=== PATIENT | male | born 1945 | race Caucasian/White ===

== ENCOUNTER → 2018-10-11 | Outpatient (CLI) | payer MEDICARE, OTHER ==
[~2018-10-11] MED LIST: ASPI81CH PO; ATOR10 PO; ATOR20 PO; Bactrim Ds Tab1 EACH PO; IBUP600 PO; MULTI VITAMIN1 EACH PO; OXYACE5T PO; Percocet 5-3251 EACH PO; RXOXYACE PO; TAMS.4ER PO
[2018-10-19 13:08] LABS: BRUSHITE 1.19 ratio (0.00-3.00); CALCIUM OXALATE 6.46 ratio (0.00-6.00); CALCIUM, URINE 13.4 mg/dL (Not Estab.); CALCIUM, URINE 160.8 mg/24 hr (100.0-300.0); CHLORIDE URINE 128 (110-250); CITRIC ACID (CITRATE) 260 mg/L (Not Estab.); CITRIC ACID(CITRATE) 312 mg/24 hr (320-1240); CREATININE, URINE 115.2 mg/dL (Not Estab.); CREATININE, URINE 1382.4 mg/24 hr (1000.0-2000.0); MAGNESIUM, URINE 8.5 mg/dL (Not Estab.); MONOSODIUM URATE 3.59 ratio (0.00-4.00); OSMOLALITY, URINE 688 (300-900); SODIUM, URINE 118 mmol/L (Not Estab.); SODIUM, URINE 142 (58-337); STRUVITE 0.01 ratio (0.00-1.00); URIC ACID 2.41 ratio (0.00-1.20); URINE VOLUME 1200 mL/24 hr (800-1800); URINE VOLUME (PRESERVATIVE) 1200 mL/24 hr (800-1800)
== END | disposition home or self-care (01) ==
LOC: LAB SHORT 10:53 → LAB 10:53 → LAB FUT 09-16 18:15 → EDSTATUS 09-16 18:15
PROVIDERS: Urology
DX: N20.0 Calculus of kidney (principal)
CPT/HCPCS: 81003; 81050; 82131; 82140; 82340; 82436; 82507; 82570; 83735; 83935; 83945; 84105; 84133; 84300; 84392; 84560

== ENCOUNTER 2018-10-25 12:33 | Day surgery (SDC) | payer MEDICARE, OTHER ==
[~2018-10-25] VITALS: Ht 177.8 cm; Wt 75.7 kg
[~2018-10-25 12:33] MED LIST changes: -Bactrim Ds Tab1 EACH PO
[2018-10-25] MEDS ORDERED: Bactrim Ds Tab1 EACH PO (13:09)
--- NOTE | 2018-10-25 14:07 | NUR ---
10/25/18 1407 Chad Wall INJECTED MYLICON INTO BX PORT PER DR SCOTTY MCGOVERN.
== END 2018-10-25 14:50 | disposition home or self-care (01) ==
LOC: ORSCSDS 12:33
PROVIDERS: Internal Medicine Gastroenterology
PROC: 0DBM8ZX Excision of Descending Colon, Via Natural or Artificial Opening Endoscopic, Diagnostic (ICD-10-PCS; principal; 2018-10-25 14:00)
DX: Z12.11 Encounter for screening for malignant neoplasm of colon (principal); Z86.010 Personal history of colon polyps; D12.4 Benign neoplasm of descending colon; F17.290 Nicotine dependence, other tobacco product, uncomplicated; Z79.899 Other long term (current) drug therapy; Z79.82 Long term (current) use of aspirin
CPT/HCPCS: 88305; J1980; J7120

== ENCOUNTER → 2019-04-18 | Outpatient (CLI) | payer MEDICARE, OTHER ==
[~2019-04-18] MED LIST changes: +Bactrim Ds Tab1 EACH PO
[2019-04-25 14:06] LABS: BRUSHITE 0.95 ratio (0.00-3.00); CALCIUM OXALATE 4.23 ratio (0.00-6.00); CALCIUM, URINE 187.2 mg/24 hr (100.0-300.0); CALCIUM, URINE 7.2 mg/dL (Not Estab.); CHLORIDE URINE 185 (110-250); CITRIC ACID (CITRATE) 203 mg/L (Not Estab.); CITRIC ACID(CITRATE) 528 mg/24 hr (320-1240); CREATININE, URINE 1570.4 mg/24 hr (1000.0-2000.0); CREATININE, URINE 60.4 mg/dL (Not Estab.); MAGNESIUM, URINE 4.3 mg/dL (Not Estab.); MONOSODIUM URATE 1.85 ratio (0.00-4.00); OSMOLALITY, URINE 411 (300-900); SODIUM, URINE 221 (58-337); SODIUM, URINE 85 mmol/L (Not Estab.); STRUVITE 0.01 ratio (0.00-1.00); URIC ACID 0.54 ratio (0.00-1.20); URINE VOLUME 2600 mL/24 hr (800-1800); URINE VOLUME (PRESERVATIVE) 2600 mL/24 hr (800-1800)
== END | disposition home or self-care (01) ==
LOC: LAB SHORT 10:18 → LAB 10:18
PROVIDERS: Urology
DX: N20.0 Calculus of kidney (principal); N40.2 Nodular prostate without lower urinary tract symptoms
CPT/HCPCS: 81003; 81050; 82131; 82140; 82340; 82436; 82507; 82570; 83735; 83935; 83945; 84105; 84133; 84300; 84392; 84560

== ENCOUNTER 2021-05-13 04:21 | Observation (INO) | payer MEDICARE, OTHER ==
[~2021-05-13] VITALS: Ht 177.8 cm; Wt 73.5 kg
[2021-05-13 05:02] LABS: BASOPHILS ABSOLUTE AUTO 0.03 K/mm3 (0.00-0.23); BASOPHILS PERCENT AUTO 1 % (0-2); EOSINOPHILS ABSOLUTE AUTO 0.14 K/mm3 (0.00-0.68); EOSINOPHILS PERCENT AUTO 2 % (0-6); Hematocrit 44.5 % (37.0-53.0); Hemoglobin 14.8 g/dL (13.5-17.5); IMMATURE GRAN ABSOLUTE AUTO 0.01 K/mm3 (0.00-0.10); IMMATURE GRAN PERCENT AUTO 0 % (0-1); LYMPHOCYTES ABSOLUTE AUTO 2.37 K/mm3 (0.84-5.20); LYMPHOCYTES PERCENT AUTO 41 % (21-46); MONOCYTES ABSOLUTE AUTO 0.54 K/mm3 (0.16-1.47); MONOCYTES PERCENT AUTO 9 % (4-13); Mean Corpuscular HGB 32.5 pg (26.0-34.0); Mean Corpuscular HGB Conc 33.3 g/dL (31.5-36.5); Mean Corpuscular Volume 98 fL (80-100); Mean Platelet Volume 10.8 fL (9.1-12.4); NEUTROPHILS ABSOLUTE AUTO 2.63 K/mm3 (1.96-9.15); NEUTROPHILS PERCENT AUTO 46 % (41-73); Platelet Count 186 K/mm3 (150-400); RDW Coefficient Variation 13.3 % (11.7-14.2); RDW Standard Deviation 47.8 fL (35.1-46.3); Red Blood Cell Count 4.55 M/mm3 (4.30-5.90); White Blood Cell Count 5.72 K/mm3 (4.00-11.30)
[2021-05-13 05:16] LABS: Alanine Aminotransfer (ALT/SGP 29 U/L (12-78); Albumin, Blood 3.5 g/dL (3.4-5.0); Albumin/Globulin Ratio 0.9 (0.8-1.8); Alk Phos 84 U/L (50-136); Anion Gap 5 mmol/L (6-16); Aspartate Aminotrans (AST/SGOT 19 U/L (12-37); Bilirubin, Total 0.5 mg/dL (0.1-1.0); Blood Urea Nitrogen 18 mg/dL (8-24); Bun/Creatinine Ratio 16.5 (12.0-20.0); CO2, Blood 26 mmol/L (21-32); Calcium, Blood 8.7 mg/dL (8.5-10.1); Chloride, Blood 111 mmol/L (98-108); Creatinine, Blood 1.09 mg/dL (0.60-1.20); Globulin, Blood 3.7 g/dL (2.2-4.0); Glomerular Filtration Rate >60 (60-); Glucose, Blood 117 mg/dL (70-99); Sodium, Blood 142 mmol/L (136-145); Total Protein, Blood 7.2 g/dL (6.4-8.2)
--- NOTE | 2021-05-13 17:49 | NUR ---
SHIFT SUMMARY PATIENT IS ALERT AND ORIENTATED X4. INDEPENDENT IN ROOM. PATIENT WAS AN ADMISSION FROM THE ER WITH CHEST PAIN. PATIENT HAD CHEST PAIN RELIEVED WITH TWO NITROGLYCERIN. PATIENT HAD TROPONINS THAT HAVE ELEVATED FROM NEGATIVE TROPONINS TO 2.6 SINCE SINCE ADMISSION. PATIENT HAS HAD A 2 PART STRESS TEST DONE AND AN ECHO DONE WELL. 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 NPO AFTER MIDNIGHT. PATIENT IS PLEASANT AND COOPERATIVE WITH CARE. WILL CONTINUE TO MOITOR UNTIL END OF SHIFT.
[2021-05-13 18:19] LABS: BASOPHILS ABSOLUTE AUTO 0.02 K/mm3 (0.00-0.23); BASOPHILS PERCENT AUTO 0 % (0-2); EOSINOPHILS ABSOLUTE AUTO 0.08 K/mm3 (0.00-0.68); EOSINOPHILS PERCENT AUTO 1 % (0-6); Hematocrit 44.9 % (37.0-53.0); Hemoglobin 14.7 g/dL (13.5-17.5); IMMATURE GRAN ABSOLUTE AUTO 0.01 K/mm3 (0.00-0.10); IMMATURE GRAN PERCENT AUTO 0 % (0-1); LYMPHOCYTES ABSOLUTE AUTO 1.69 K/mm3 (0.84-5.20); LYMPHOCYTES PERCENT AUTO 25 % (21-46); MONOCYTES ABSOLUTE AUTO 0.56 K/mm3 (0.16-1.47); MONOCYTES PERCENT AUTO 8 % (4-13); Mean Corpuscular HGB Conc 32.7 g/dL (31.5-36.5); Mean Corpuscular Volume 98 fL (80-100); Mean Platelet Volume 10.6 fL (9.1-12.4); NEUTROPHILS ABSOLUTE AUTO 4.39 K/mm3 (1.96-9.15); NEUTROPHILS PERCENT AUTO 65 % (41-73); Platelet Count 180 K/mm3 (150-400); RDW Coefficient Variation 13.4 % (11.7-14.2); RDW Standard Deviation 48.9 fL (35.1-46.3); White Blood Cell Count 6.75 K/mm3 (4.00-11.30)
[2021-05-13 18:34] LABS: Anion Gap 3 mmol/L (6-16); Blood Urea Nitrogen 19 mg/dL (8-24); Bun/Creatinine Ratio 20.7 (12.0-20.0); CO2, Blood 28 mmol/L (21-32); Chloride, Blood 110 mmol/L (98-108); Creatinine, Blood 0.92 mg/dL (0.60-1.20); Glomerular Filtration Rate >60 (60-); Glucose, Blood 85 mg/dL (70-99); International Normalized Ratio 1.01; Potassium, Blood 3.9 mmol/L (3.5-5.5); Prothrombin Time Results 10.9 Sec (9.7-11.5); Sodium, Blood 141 mmol/L (136-145)
--- NOTE | 2021-05-13 22:28 | NUR ---
Alert oriented Male admitted with chest pain had critical troponin 2.6 on day shift & started on heparin GTT which is infusing . 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 PT denies chest pain or acute distress. 2nd critical troponin of 1.28 discussed with Elayne Flower RN. Continue current treatment plan. was at bedside earlier & aware of treatment plan. On remote tele monitor sinus bradycardia currently rate 48.
--- NOTE | 2021-05-13 23:08 | NUR ---
covid 19 test pre cardiac cath ordered. collected sample & sent to lab.
[2021-05-14 00:04] LABS: SARS-Cov-2 (COVID-19) PCR, MMC NEGATIVE (NEGATIVE)
--- NOTE | 2021-05-14 02:16 | NUR ---
75 year old MAle admitted with CP currently denies any CP & is on herpain GTT managed by pharmacy for NSTEMI. Heparin bolus & titrate hepain per pharmacy orders. NPO for cardiac cath today. Bradycardia 48 to 56 pulse & remote tele monitoring. Cidid 19 test prescreen for cardiac cath done & neg. Discussed prep orders & Makeda Carrion RN says heart center completes. 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 PT verbalized understaningof planned angiogram.
[2021-05-14 06:00] LABS: Glucose, Blood 86 mg/dL (70-99)
[2021-05-14 06:03] LABS: Troponin I 0.914 ng/mL (0.000-0.040)
--- NOTE | 2021-05-14 12:58 | NUR ---
13 CC OF AIR REMOVED OVER 20 MIN FROM NOW DEFLATED RIGHT TR BAND. RIGHT TR BAND SITE SOFT NON-TENDER WITH NO HEMATOMA, NO PULSATILE BLEEDING AND WRIST BOARD IN PLACE. CALL LIGHT IN REACH.
--- NOTE | 2021-05-14 13:07 | NUR ---
NO CHANGES TO DEFLATED RIGHT TR BAND
[2021-05-14] MEDS ORDERED: TICA90TA PO ×2 (14:10→14:12)
--- NOTE | 2021-05-14 14:40 | NUR ---
TR BAND REMOVED FROM RIGHT RADIAL SITE, CLOTH DOT PLACED. PT AWAITING DISCHARGE. IN WAITING AREA.
--- NOTE | 2021-05-14 15:08 | NUR ---
SALINE LOCK REMOVED WITH CATHETER INTACT. PT DENIES ANY C/O'S.
--- NOTE | 2021-05-14 15:08 | NUR ---
PT DRESSED SELF IN BATHROOM.
--- NOTE | 2021-05-14 15:35 | NUR ---
PT VERBALIZED UNDERSTANDING OF D/C INSTRUCTIONS. PAPERWORK PROVIDED IN FOLDER TO TAKE HOME. PRESENT AT TIME OF DISPO, TO ALSO BE INSTRUCTED ON PT EDUCATION AND FOLLOW UP INSTRUCTIONS. RIGHT WRIST WITH RED CLOTH DOT DRESSING INTACT, SOFT NON TENDER WITH NO ACTIVE BLEEDING, OOZING, OR PAIN NOTED. IV REMOVED WITH CATH INTACT, PRESSURE DRESSING APPLIED. ARM BOARD AND SLING ON RIGHT WRIST/ARM. ALL PERSONAL BELONGINGS SENT WITH PATIENT. DENIES NEED FOR W/C OUT TO PRIVATE VEHICLE. AMBULATES WITH STEADY GAIT. VSS. PREVIOUSLY CALLED NEW PRESCRIPTION FOR BRILINTA TO [facility].
--- NOTE | 2021-05-14 16:30 | NUR ---
PT ARRIVES POST DISCHARGE TO DISCUSS COST OF NEW MEDICATION BRILINTA, TOO EXPENSIVE, DR. CLAYTON NOTIFIED, NEW PRESCRIPTION RECIEVED FOR PLAVIX 300 MG TODAY AND PLAVIX 75 MG DAILY. ALONG WTH ASPIRIN 81 MG DAILY. MEDS CALLED TO [facility]. PT UPDATED ON NEW MEDICATION LIST VIA TELEPHONE, PT VERBALIZED UNDERSTANDING.
== END 2021-05-14 16:29 | disposition home or self-care (01) ==
LOC: ER 04:21 → ERHOLD 04:22 → MEDS 04:22 → ERHOLD 04:22 → MEDS 09:53 → PCU 05-14 10:06
PROVIDERS: Emergency Medicine; Internal Medicine Cardiovascular Disease; ADMIT Internal Medicine
DX: I21.4 Non-ST elevation (NSTEMI) myocardial infarction (principal); R06.2 Wheezing; E78.5 Hyperlipidemia, unspecified; I25.10 Atherosclerotic heart disease of native coronary artery without angina pectoris; I10 Essential (primary) hypertension; F17.290 Nicotine dependence, other tobacco product, uncomplicated; Z20.822 Contact with and (suspected) exposure to COVID-19
CPT/HCPCS: 36415; 71045; 71046; 78452; 80048; 80053; 82947; 84484; 85025; 85347; 85379; 85610; 85730; 92921; 93005; 93010; 93017; 93306; 93458; 96374; 96376; 99152; 99153; 99285-25; A9270; A9500; C1725; C1769; C1874; C1887; C1894; C9600; G0378; J1644; J2250; J2785; J3010; J7030; J7050; Q9967; U0004

== ENCOUNTER 2021-11-04 15:33 | Inpatient (IN) | payer OTHER ==
[~2021-11-04] VITALS: Ht 177.8 cm; Wt 79.9 kg
[~2021-11-04 15:33] MED LIST changes: +TICA90TA PO
[2021-11-04 16:16] LABS: BASOPHILS ABSOLUTE AUTO 0.03 K/mm3 (0.00-0.23); BASOPHILS PERCENT AUTO 1 % (0-2); EOSINOPHILS PERCENT AUTO 3 % (0-6); Hematocrit 44.1 % (37.0-53.0); Hemoglobin 14.7 g/dL (13.5-17.5); IMMATURE GRAN PERCENT AUTO 0 % (0-1); LYMPHOCYTES ABSOLUTE AUTO 1.29 K/mm3 (0.84-5.20); LYMPHOCYTES PERCENT AUTO 32 % (21-46); MONOCYTES ABSOLUTE AUTO 0.69 K/mm3 (0.16-1.47); MONOCYTES PERCENT AUTO 17 % (4-13); Mean Corpuscular HGB 31.7 pg (26.0-34.0); Mean Corpuscular HGB Conc 33.3 g/dL (31.5-36.5); Mean Corpuscular Volume 95 fL (80-100); Mean Platelet Volume 10.8 fL (9.1-12.4); NEUTROPHILS PERCENT AUTO 47 % (41-73); Platelet Count 192 K/mm3 (150-400); RDW Coefficient Variation 13.1 % (11.7-14.2); RDW Standard Deviation 46.2 fL (35.1-46.3); Red Blood Cell Count 4.63 M/mm3 (4.30-5.90); White Blood Cell Count 4.01 K/mm3 (4.00-11.30)
[2021-11-04 16:58] LABS: Alanine Aminotransfer (ALT/SGP 40 U/L (12-78); Albumin, Blood 3.7 g/dL (3.4-5.0); Alk Phos 75 U/L (50-136); Anion Gap 7 mmol/L (6-16); Aspartate Aminotrans (AST/SGOT 26 U/L (12-37); Bilirubin, Total 0.4 mg/dL (0.1-1.0); Blood Urea Nitrogen 20 mg/dL (8-24); Bun/Creatinine Ratio 19.6 (12.0-20.0); CO2, Blood 26 mmol/L (21-32); Calcium, Blood 8.8 mg/dL (8.5-10.1); Chloride, Blood 107 mmol/L (98-108); Creatinine, Blood 1.02 mg/dL (0.60-1.20); Globulin, Blood 3.8 g/dL (2.2-4.0); Glomerular Filtration Rate >60 (60-); Glucose, Blood 103 mg/dL (70-99); Potassium, Blood 4.3 mmol/L (3.5-5.5); Sodium, Blood 140 mmol/L (136-145); Total Protein, Blood 7.5 g/dL (6.4-8.2)
[2021-11-04] MEDS ORDERED: NITR.4SL SL (20:02)
[2021-11-04] MEDS ORDERED: ASPIR 8181 M1 PO (20:02)
[2021-11-04] MEDS ORDERED: TAMS.4ER PO (20:02)
[2021-11-04] MEDS ORDERED: CLOP75 PO (20:02)
[2021-11-04 21:37] LABS: International Normalized Ratio 1.03; Prothrombin Time Results 10.8 Sec (9.7-11.5)
--- NOTE | 2021-11-05 05:28 | NUR ---
SHIFT SUMMARY PT ALERT AND ORIENTED X4. PLEASANT AND COOPERATIVE TO CARE, IN GOOD SPIRITS. PT HAS NOT HAD ANY CHEST PAIN SINCE ARRIVAL ON UNIT AT 2241. INDEPENDENT FOR ADLS. ON RA MAINTAINING SATS OVER 96%. BP STABLE. HEPARIN GTT INFUSING. NPO SINCE MIDNIGHT FOR AM ANGIO. IN BED SLEEPING WITH CALL ALARM AT SIDE. WILL CONTINUE TO MONITOR UNTIL REPORT GIVEN TO DAYSHIFT RN
[2021-11-05 11:06] LABS: Influenza A, PCR NEGATIVE (NEGATIVE); Influenza B, PCR NEGATIVE (NEGATIVE); Resp Syncytial Virus, PCR NEGATIVE (NEGATIVE)
[2021-11-05 11:13] LABS: SARS-Cov-2 (COVID-19) PCR, MMC POSITIVE (NEGATIVE)
--- NOTE | 2021-11-05 12:26 | NUR ---
PT OUT OF ROOM TO ANGIOGRAM WITH GLAZIER ARTIST STAFF.
--- NOTE | 2021-11-05 13:18 | NUR ---
Patient is lying in bed and alert. Patient tells me about the importance of a quick recovery because his spouse, who has stage 4 cancer, has a doctors appointment tomorrow morning at 0900. He explains about his heart issues, his 's cance, his daughter's cancer the recent loss of his son-in-law to medical complications (last Thursday) and his fears about his upcoming surgery. Pt also speaks about his long time [facility] [employer] and the importance of vishal in his grief and medical challenges. I listen empathically, normalize pt's experience and provide grief support, anxiety containment and prayer. Patietn responds well and shows signs of increased peace. I will continue to remain available to patient and family.
[2021-11-05] MEDS ORDERED: METO25 PO (15:43)
[2021-11-05] MEDS ORDERED: ATOR20 PO (15:43)
[2021-11-05] MEDS ORDERED: Isosorbide Mono30 MG PO (15:44)
[2021-11-05] MEDS ORDERED: XARELTO10 M2 PO (15:46)
--- NOTE | 2021-11-06 08:09 | NUR ---
Per chart review with Dr. Rapp, patient appropriate for discharge yesterday. I went to visit the patient in his [facility] room PCU 15, he was alert and very pleasant. He had spoke to his and she was able to provide discharge transportation. Patient stated he was feeling much better. I scheduled him for a telehealth (phone call only) office visit with Dr. Ajit Mi on Thursday, November 11, 2021 at 11:20 AM. Patient is completely independent and did not have any dme needs, also was on RA upon discharge. Patient, patient's , and patient's nurse all agreeable with discharge plan. Dr. Rapp requested the patient be given 30# 10mg tablets of Xarelto to take home. I gave five bottles containing 7 tablets in each of 10 mg xarelto to the patient's nurse to dispense to him.
== END 2021-11-05 17:31 | disposition home or self-care (01) | DRG 286 ==
LOC: ER 15:33 → PCU 15:34
PROVIDERS: Internal Medicine Interventional Cardiology; Physician Assistant; ADMIT Internal Medicine
PROC: B2111ZZ Fluoroscopy of Multiple Coronary Arteries using Low Osmolar Contrast (ICD-10-PCS; principal; 2021-11-05)
PROC: 8E0ZXY6 Isolation (ICD-10-PCS; 2021-11-05)
DX: I25.110 Atherosclerotic heart disease of native coronary artery with unstable angina pectoris (principal); U07.1 COVID-19; E78.5 Hyperlipidemia, unspecified; N40.0 Benign prostatic hyperplasia without lower urinary tract symptoms; I25.10 Atherosclerotic heart disease of native coronary artery without angina pectoris; F41.9 Anxiety disorder, unspecified; Z87.891 Personal history of nicotine dependence; E78.00 Pure hypercholesterolemia, unspecified; Z95.5 Presence of coronary angioplasty implant and graft; Z79.02 Long term (current) use of antithrombotics/antiplatelets; Z79.82 Long term (current) use of aspirin; Z79.899 Other long term (current) drug therapy; Z87.442 Personal history of urinary calculi
CPT/HCPCS: 0241U; 36415; 71046; 76937; 80053; 84484; 85025; 85347; 85610; 85730; 93005; 93010; 93454; 96374; 99152; 99153; 99285-25; A9270; C1769; C1887; C1894; G0378; J1644; J2250; J3010; J7030; J7050; Q9967